=== PATIENT | male | born 1945 | race American Indian/Alaskan Native ===

== ENCOUNTER 2016-12-04 10:40 | Emergency (ER) | payer MEDICARE ==
--- NOTE | 2016-12-04 12:00 | Emergency Department Report ---
Chief Complaint: Abdominal Pain Stated Complaint: LT SIDE PAIN Time Seen by Provider: 12/04/16 11:57 - HPI History of Present Illness: Patient here reports abdominal pain to left side for approximately 1 month. He is also complaining of some swelling to the ear for a couple weeks. Denies any fever or chills. Denies any nausea or vomiting. Denies any urinary burning or blood in his urine. His primary care physician is Dr. Velasquez Dill. He said he was here 6 months ago and he had a CT scan done and they told him that he has kidney stone bleeding does not believe that. Patient has a history of spinal injury at C5-6 and he is had surgery in the past. Patient is a incomplete quadriplegic. He has a suprapubic catheter in place. Reports pain is 9 out of 10 to his left abdomen and it comes and goes. - ROS Review of Systems: all Systems are negative unless stated in HPI above - Exam Vital Signs: Vital Signs 12/04/16 11:07 Temperature 98.4 F Pulse Rate 80 Respiratory 18 Rate Blood Pressure 97/65 O2 Sat by Pulse 100 Oximetry Physical Exam: General: This is a 68 through male well-nourished well-developed in no acute distress.He Is wheelchair bound. CV: Blood pressure is 97/65 and patient reports his blood pressure is usually low. S1 and S2, regular rate and rhythm. Abdomen: Mild tenderness to palpate to left lower abdomen. no Guarding or rebound tenderness. It is CVA tenderness. Patient has suprapubic catheter with small amount of drainage which she said has been there since he had catheter placed. MSE screening note: Focused history and physical exam performed. Due to findings the following was ordered: see [facility] ED Medical Decision Making - Medical Decision Making Medical decision making: Patient seen by provider in triage area. Appropriate protocol activated and patient to main ED to be seen by physician. ED Disposition for MSE Condition: Stable
[2016-12-04 12:35] LABS: Basophils % (Auto) 0.4 % (0.0-1.8); Hematocrit 43.4 % (35.5-45.6); Hemoglobin 14.2 gm/dl (11.8-15.2); Mean Corpuscular HGB Conc 33 % (32-34); Mean Corpuscular Hemoglobin 28 pg (28-32); Mean Corpuscular Volume 84 fl (84-94); Platelet Count 112 K/mm3 (140-440); Red Blood Count 5.15 M/mm3 (3.65-5.03); Red Cell Distribution Width 14.9 % (13.2-15.2); White Blood Count 4.1 K/mm3 (4.5-11.0)
[2016-12-04 12:43] LABS: Alanine Aminotransferase 30 units/L (7-56); Albumin 3.5 g/dL (3.9-5); Albumin/Globulin Ratio 0.9 %; Alkaline Phosphatase 71 units/L (35-129); Amylase 135 units/L (27-131); Anion Gap 16 mmol/L; BUN/Creatinine Ratio 18.57; Bilirubin,Direct 0.2 mg/dL (0-0.2); Bilirubin,Indirect 0.6 mg/dL; Bilirubin,Total 0.8 mg/dL (0.1-1.2); Blood Urea Nitrogen 26 mg/dL (9-20); Calcium 8.9 mg/dL (8.4-10.2); Carbon Dioxide 23 mmol/L (22-30); Chloride 102.9 mmol/L (98-107); Glucose 109 mg/dL (75-100); Lipase 54 units/L (13-60); Potassium 4.1 mmol/L (3.6-5.0); Sodium 138 mmol/L (137-145); Total Protein 7.6 g/dL (6.3-8.2)
[2016-12-04 13:10] LABS: Bilirubin,Urine NEG (Negative); Blood,Urine MOD (Negative); Ketones,Urine TR mg/dL (Negative); Leukocyte Esterase,Urine MOD (Negative); Mucus,Urine FEW /HPF; Nitrite,Urine NEG (Negative)
[2016-12-04 13:11] LABS: RBC,Urine > 182.0 /HPF (0.0-6.0); WBC,Urine > 182.0 /HPF (0.0-6.0)
--- NOTE | 2016-12-04 18:22 | Cat Scan Report ---
FINAL REPORT PROCEDURE: CT ABDOMEN PELVIS WO CON TECHNIQUE: Computerized axial tomography of the abdomen and pelvis was performed without intravenous contrast. This study is performed without intravascular contrast material and its sensitivity for abdominal and pelvic pathology, including neoplasms, inflammation, abscess, free fluid, thrombosis, arterial dissection and infarction, is reduced compared with a contrast enhanced study. HISTORY: abdomional pain with UTI. H/O kidney stones COMPARISON: CT exam dated October 05, 2015 FINDINGS: Hypoventilatory changes are seen in the lower lungs. Heart is mildly enlarged without pulmonary venous congestion. Liver and spleen appear normal. Gallbladder is not well distended. No definite wall thickening is seen but there is a small stone in the neck of the gallbladder measuring approximately 3 millimeters in size. No biliary ductal dilation is seen. Pancreas appears normal. Adrenal glands and abdominal aorta are normal in size. No nephrolithiasis or hydronephrosis is seen. Mildly hyperdense cyst is suspected in the superior pole of the right kidney, unchanged from prior study. Patient has a suprapubic catheter with decompressed urinary bladder. There is likely small left inguinal hernia containing fat and mild fatty distention of the right inguinal ring. Prostatomegaly is similar to prior study. No free pelvic fluid is seen. Mild constipation is seen in the rectosigmoid colon. Normal appendix is seen. No evidence of small bowel obstruction is seen. IMPRESSION: Bladder is decompressed with a suprapubic catheter and cannot be assessed for wall thickening. No evidence of pyelonephritis is seen. No renal stones or hydronephrosis are seen. 3 millimeter gallstone is seen without suggestion of cholecystitis. There is mild constipation in the rectosigmoid colon.
[2016-12-04 22:50] VITALS: BP 139/84
== END 2016-12-04 23:15 ==
LOC: ED 10:40
DX: R10.30 Lower abdominal pain, unspecified (principal); H93.8X9 Other specified disorders of ear, unspecified ear; Z53.21 Procedure and treatment not carried out due to patient leaving prior to being seen by health care provider
CPT/HCPCS: 36415; 74176; 80048; 80074; 81001; 82150; 83690; 85025

== ENCOUNTER 2019-11-03 02:21 | Emergency (ER) | payer MEDICARE ==
[2019-11-03 03:19] LABS: Basophils # (Auto) 0.1 K/mm3 (0.0-0.1); Basophils % (Auto) 0.6 % (0.0-1.8); Eosinophils # (Auto) 0.1 K/mm3 (0.0-0.4); Eosinophils % (Auto) 1.7 % (0.0-4.3); Hematocrit 46.5 % (35.5-45.6); Hemoglobin 15.6 gm/dl (11.8-15.2); Lymphocytes # (Auto) 1.6 K/mm3 (1.2-5.4); Lymphocytes % (Auto) 19.9 % (13.4-35.0); Mean Corpuscular HGB Conc 34 % (32-34); Mean Corpuscular Volume 86 fl (84-94); Monocytes # (Auto) 0.7 K/mm3 (0.0-0.8); Monocytes % (Auto) 9.3 % (0.0-7.3); Platelet Count 170 K/mm3 (140-440); Red Cell Distribution Width 14.5 % (13.2-15.2)
[2019-11-03 03:39] LABS: Calcium 9.6 mg/dL (8.4-10.2)
--- NOTE | 2019-11-03 04:04 | Emergency Department Report ---
ED General Adult HPI - General Chief complaint: High BP Stated complaint: HBP Time Seen by Provider: 11/03/19 03:50 Source: patient, EMS Mode of arrival: Stretcher Limitations: Physical Limitation - History of Present Illness Initial comments: Patient is a 73-year-old male that presents emergency room with complaints that his urostomy tube is not working. Patient states the urine is not flowing from his urostomy tube but is coming out his penis. Patient states his been going on for hours. Patient states he is also having high blood pressure. Patient complains of generalized pain. Patient states she has generalized chronic pain. -: Sudden Severity scale (0 -10): 10 Consistency: constant Improves with: none Worsens with: none - Related Data Home Medications Medication Instructions Recorded Confirmed Last Taken Multivit-Minerals/FA/Lycopene [One 1 tab PO DAILY 07/04/14 10/05/15 07/03/14 10:00 Daily [employer] Tablet] Lisinopril 10 mg PO DAILY 05/13/15 10/05/15 05/12/15 09:00 Previous Rx's Medication Instructions Recorded Last Taken Type levoFLOXacin [Levaquin TAB] 500 mg PO QDAY #7 tablet 10/05/[address] [Voltaren Dr] 75 mg PO Q12H #30 tablet 11/01/15 Unknown Rx Oxycodone HCl/Acetaminophen 1 each PO Q6HR PRN #20 tablet 11/01/15 Unknown Rx [Percocet 7.5/325 mg] hydrOXYzine HCL [Atarax] 25 mg PO Q6HR PRN #30 tablet 11/01/15 Unknown Rx levoFLOXacin [Levaquin] 750 mg PO QDAY #7 tablet 11/01/15 Unknown Rx oxyCODONE /ACETAMINOPHEN [Percocet 1 tab PO Q6HR PRN #12 tablet 11/17/15 Unknown Rx 5/325] traMADoL [Ultram 50 MG tab] 50 mg PO Q6HR PRN #12 tablet 12/23/15 Unknown Rx Acetaminophen/Codeine [Tylenol #3] 1 tab PO Q6H PRN #20 tab 02/04/16 Unknown Rx levoFLOXacin [Levaquin TAB] 500 mg PO QDAY #10 tablet 11/03/19 Unknown Rx Allergies Allergy/AdvReac Type Severity Reaction Status Date / Time No Known Allergies Allergy Verified 12/04/16 11:07 ED Review of Systems ROS: Stated complaint: HBP Other details as noted in HPI Comment: All other systems reviewed and negative ED Past Medical Hx - Past Medical History Previous Medical History?: Yes Hx Hypertension: Yes (2011, instructed to take his medication. ) Hx Liver Disease: No Hx Renal Disease: No Hx Arthritis: Yes Hx Seizures: No Hx Kidney Stones: Yes Hx Psychiatric Treatment: No Hx Asthma: No Hx HIV: No Additional medical history: spinal injury C5/6 incomplete quadriplegia - Surgical History Past Surgical History?: Yes Additional Surgical History: spinal surgery. suprapubic. STONE REMOVED FROM RIGHT SALIVARY GLAND - Social History Smoking Status: Former Smoker Substance Use Type: None - Medications Home Medications: Home Medications Medication Instructions Recorded Confirmed Last Taken Type Multivit-Minerals/FA/Lycopene [One 1 tab PO DAILY 07/04/14 10/05/15 07/03/14 10:00 History Daily [employer] Tablet] Lisinopril 10 mg PO DAILY 05/13/15 10/05/15 05/12/15 09:00 History levoFLOXacin [Levaquin TAB] 500 mg PO QDAY #7 tablet 10/05/[address] [Derrick Dr] 75 mg PO Q12H #30 tablet 11/01/15 Unknown Rx Oxycodone HCl/Acetaminophen 1 each PO Q6HR PRN #20 tablet 11/01/15 Unknown Rx [Percocet 7.5/325 mg] hydrOXYzine HCL [Atarax] 25 mg PO Q6HR PRN #30 tablet 11/01/15 Unknown Rx levoFLOXacin [Levaquin] 750 mg PO QDAY #7 tablet 11/01/15 Unknown Rx oxyCODONE /ACETAMINOPHEN [Percocet 1 tab PO Q6HR PRN #12 tablet 11/17/15 Unknown Rx 5/325] traMADoL [Ultram 50 MG tab] 50 mg PO Q6HR PRN #12 tablet 12/23/15 Unknown Rx Acetaminophen/Codeine [Tylenol #3] 1 tab PO Q6H PRN #20 tab 02/04/16 Unknown Rx levoFLOXacin [Levaquin TAB] 500 mg PO QDAY #10 tablet 11/03/19 Unknown Rx ED Physical Exam - General Limitations: Physical Limitation General appearance: alert, in no apparent distress - Head Head exam: Present: atraumatic, normocephalic - Eye Eye exam: Present: normal appearance - ENT ENT exam: Present: mucous membranes moist - Neck Neck exam: Present: normal inspection - Respiratory Respiratory exam: Present: normal lung sounds bilaterally. Absent: respiratory distress - Cardiovascular Cardiovascular Exam: Present: regular rate, normal rhythm. Absent: systolic murmur, diastolic murmur, rubs, gallop - GI/Abdominal GI/Abdominal exam: Present: soft, normal bowel sounds, other (suprapubic urostomy tube noted.). Absent: tenderness - Rectal Rectal exam: Present: deferred - Extremities Exam Extremities exam: Present: normal inspection - Back Exam Back exam: Present: normal inspection - Neurological Exam Neurological exam: Present: alert, oriented X3 - Psychiatric Psychiatric exam: Present: normal affect, normal mood - Skin Skin exam: Present: warm, dry, intact, normal color. Absent: rash ED Course Vital Signs 11/03/19 11/03/19 11/03/19 02:35 04:01 04:15 Temperature 98.2 F Pulse Rate 70 101 H Respiratory 16 17 16 Rate Blood Pressure 254/149 145/97 Blood Pressure 254/149 [Left] O2 Sat by Pulse 96 95 Oximetry 11/03/19 05:00 Temperature Pulse Rate 97 H Respiratory 13 Rate Blood Pressure 152/105 Blood Pressure [Left] O2 Sat by Pulse 96 Oximetry - Reevaluation(s) Reevaluation #1: Dari evaluation done. Patient's urostomy tube was flushed and urine began to flow. Urostomy tube appears to be clogged with a clot. 11/03/19 03:46 Reevaluation #2: After the urine began to flow into the patient's urostomy bag, the patient's blood pressure immediately improved. current blood pressure is 146/80. Patient will be given 1 mg Dilaudid. 11/03/19 04:04 Reevaluation #3: Pressures much better. Blood pressure stabilized. Patient did not require any blood pressure medication. Patient's pain is better. Patient urostomy tube is flowing nicely. Patient is stable for discharge. I discussed all results with patient. Patient agrees to plan of care. Patient will be discharged home and will be transported via ground EMS. I discussed discharge instructions patient. Patient voiced understanding of discharge instructions. 11/03/19 04:54 ED Medical Decision Making - Lab Data Result diagrams: 11/03/19 03:09 11/03/19 03:08 - EKG Data -: EKG Interpreted by Me EKG shows normal: sinus rhythm, axis, intervals, QRS complexes, ST-T waves Rate: normal - Medical Decision Making Patient is a 73-year-old mellitus emergency room with complaints of urinary retention and elevated blood pressure. Patient was brought in by EMS. Patient blood pressure improved on its own after the urinary obstruction was removed. Patient's urostomy tube was flushed with normal saline. Patient's urostomy obstruction was easily removed with minimal effort. Patient's blood pressure improved on its own after the obstruction was cleared. Patient will be tr ansferred back to his place of residence via EMS. - Differential Diagnosis urinary retention, malfunctioning urostomy tube. Urostomy tube obs. Htn Critical care attestation.: If time is entered above; I have spent that time in minutes in the direct care of this critically ill patient, excluding procedure time. ED Disposition Clinical Impression: Urinary retention Complication, blocked urostomy catheter Qualifiers: Encounter type: initial encounter Qualified Code(s): T83.098A - Other mechanical complication of other urinary catheter, initial encounter UTI (urinary tract infection) Qualifiers: Urinary tract infection type: acute cystitis Hematuria presence: with hematuria Qualified Code(s): N30.01 - Acute cystitis with hematuria Hypertension Qualifiers: Hypertension type: essential hypertension Qualified Code(s): I10 - Essential (primary) hypertension Disposition: - TO HOME OR SELFCARE Is pt being admited?: No Does the pt Need Aspirin: No Condition: Stable Instructions: Heart Healthy Diet (ED), How to Take a Blood Pressure (ED), DASH Eating Plan (ED), Hypertension (ED) Additional Instructions: Patient to follow up with primary care in 2-3 days. Patient to follow up with u rologist in 2-3 days. Patient to return to ER if condition changes, worsens or new symptoms arise. Patient to rest. Patient to increase water. Patient take meds as directed. He should to monitor blood pressure at home and keep a blood pressure log. Patient to take blood pressure log to his follow-up appointments. Patient to eat a heart healthy, low salt diet. Prescriptions: levoFLOXacin [Levaquin TAB] 500 mg PO QDAY #10 tablet Referrals: PRIMARY CARE, [Primary Care Provider] - 2-3 Days Time of Disposition: 05:41
[2019-11-03] MEDS ORDERED: HYDROmorphone 1 MG/1 ML INJ IV ONE (04:05)
[2019-11-03 05:18] LABS: Bacteria,Urine 2+ /HPF (Negative); Bilirubin,Urine NEG (Negative); Blood,Urine LG (Negative); Color,Urine Yellow (Yellow); Mucus,Urine FEW /HPF; Urobilinogen,Urine < 2.0 mg/dL (<2.0)
[2019-11-03 07:33] VITALS: BP 142/65
== END 2019-11-03 07:24 | disposition home or self-care (01) ==
LOC: ED 02:21
DX: N39.0 Urinary tract infection, site not specified (principal); I10 Essential (primary) hypertension; T83.098A Other mechanical complication of other urinary catheter, initial encounter; M19.90 Unspecified osteoarthritis, unspecified site; N20.0 Calculus of kidney; Z98.890 Other specified postprocedural states; Z87.891 Personal history of nicotine dependence; Z79.899 Other long term (current) drug therapy
CPT/HCPCS: 36415; 80048; 81001; 85025; 87076; 87086; 87186; 93005; 93010; 96374; 99284; J1170

== ENCOUNTER 2021-09-14 05:30 | Emergency (ER) | payer MEDICARE ==
--- NOTE | 2021-09-14 05:36 | Event Note ---
ED Screening Note ED Screening Note: This initial assessment/diagnostic orders/clinical plan/treatment(s) is/are subject to change based on patients health status, clinical progression and re- assessment by fellow clinical providers in the ED. Further treatment and workup at subsequent clinical providers discretion. Patient/guardian urged not to elope from the ED as their condition may be serious if not clinically assessed and managed. This is a 75-year-old male with history of "weak bladder", quadriplegia who presents with hematuria. Patient had suprapubic catheter placed at [facility] 3 days ago. Patient also has flank pain. Screening orders initiated.
[2021-09-14] MEDS ORDERED: fentaNYL 100 MCG/2 ML INJ IV ONE (06:12)
[2021-09-14] MEDS ORDERED: ONDANSETRON 4 MG/2 ML INJ IV ONE (06:12)
[2021-09-14] MEDS ORDERED: fentaNYL 100 MCG/2 ML INJ ONE (06:15)
[2021-09-14] MEDS ORDERED: hydrALAZINE 20 MG/1 ML INJ IV ONE (06:19)
--- NOTE | 2021-09-14 06:28 | Emergency Department Report ---
ED General Adult HPI - General Chief complaint: Urogenital-Male Stated complaint: CATH BLEEDING Time Seen by Provider: 09/14/21 06:09 Source: patient, EMS Mode of arrival: Stretcher Limitations: Physical Limitation - History of Present Illness Initial comments: Patient is 75 years old male with history of quadriplegia secondary to spinal injury at C5 and C6, hypertension and kidney stone. Patient also had history of bladder incontinence most likely secondary to his quadriplegia with chronic suprapubic catheter. Patient stated that he went to [facility] for replacement of his suprapubic catheter 3 days ago. Patient stated that for the last few days he started to have blood in the urine and suprapubic pain. Patient stated that this is happened to him before and usually relieved with irrigation of the catheter. Patient stated that his pain is 10 out of 10. Patient also found to be hypertensive with a blood pressure of 230/120. Patient stated that he is out of his blood pressure medication 2. Patient denied any fever or chills. No chest pain or shortness of breath. He also complained of flank pain bilaterally. Severity scale (0 -10): 10 - Related Data Home Medications Medication Instructions Recorded Confirmed Last Taken Multivit-Minerals/FA/Lycopene [One 1 tab PO DAILY 07/04/14 10/05/15 07/03/14 10:00 Daily [employer] Tablet] Lisinopril 10 mg PO DAILY 05/13/15 10/05/15 05/12/15 09:00 Previous Rx's Medication Instructions Recorded Last Taken Type levoFLOXacin [Levaquin TAB] 500 mg PO QDAY #7 tablet 10/05/15 Unknown Rx Samson Hidalgo [Derrick Hidalgo] 75 mg PO Q12H #30 tablet 11/01/15 Unknown Rx Oxycodone HCl/Acetaminophen 1 each PO Q6HR PRN #20 tablet 11/01/15 Unknown Rx [Percocet 7.5/325 mg] hydrOXYzine HCL [Atarax] 25 mg PO Q6HR PRN #30 tablet 11/01/15 Unknown Rx levoFLOXacin [Levaquin] 750 mg PO QDAY #7 tablet 11/01/15 Unknown Rx oxyCODONE /ACETAMINOPHEN [Percocet 1 tab PO Q6HR PRN #12 tablet 11/17/15 Unknown Rx 5/325] traMADoL [Ultram 50 MG tab] 50 mg PO Q6HR PRN #12 tablet 12/23/15 Unknown Rx Acetaminophen/Codeine [Tylenol #3] 1 tab PO Q6H PRN #20 tab 02/04/16 Unknown Rx levoFLOXacin [Levaquin TAB] 500 mg PO QDAY #10 tablet 11/03/19 Unknown Rx Allergies Allergy/AdvReac Type Severity Reaction Status Date / Time No Known Allergies Allergy Verified 12/04/16 11:07 ED Review of Systems ROS: Stated complaint: CATH BLEEDING Other details as noted in HPI Comment: All other systems reviewed and negative Constitutional: denies: chills, fever Respiratory: denies: cough, shortness of breath, SOB with exertion, SOB at rest Cardiovascular: denies: chest pain, palpitations Gastrointestinal: abdominal pain. denies: nausea, vomiting, diarrhea, constipation, hematemesis, melena, hematochezia Musculoskeletal: back pain Neurological: denies: headache, weakness, numbness, paresthesias, confusion ED Past Medical Hx - Past Medical History Hx Hypertension: Yes (2011, instructed to take his medication. ) Hx Liver Disease: No Hx Renal Disease: No Hx Arthritis: Yes Hx Seizures: No Hx Kidney Stones: Yes Hx Psychiatric Treatment: No Hx Asthma: No Hx HIV: No Additional medical history: spinal injury C5/6 incomplete quadriplegia - Surgical History Past Surgical History?: Yes Additional Surgical History: spinal surgery. suprapubic. STONE REMOVED FROM RIGHT SALIVARY GLAND - Social History Smoking Status: Never Smoker - Medications Home Medications: Home Medications Medication Instructions Recorded Confirmed Last Taken Type Multivit-Minerals/FA/Lycopene [One 1 tab PO DAILY 07/04/14 10/05/15 07/03/14 10:00 History Daily [employer] Tablet] Lisinopril 10 mg PO DAILY 05/13/15 10/05/15 05/12/15 09:00 History levoFLOXacin [Levaquin TAB] 500 mg PO QDAY #7 tablet 10/05/[address] [Derrick Hidalgo] 75 mg PO Q12H #30 tablet 11/01/15 Unknown Rx Oxycodone HCl/Acetaminophen 1 each PO Q6HR PRN #20 tablet 11/01/15 Unknown Rx [Percocet 7.5/325 mg] hydrOXYzine HCL [Atarax] 25 mg PO Q6HR PRN #30 tablet 11/01/15 Unknown Rx levoFLOXacin [Levaquin] 750 mg PO QDAY #7 tablet 11/01/15 Unknown Rx oxyCODONE /ACETAMINOPHEN [Percocet 1 tab PO Q6HR PRN #12 tablet 11/17/15 Unknown Rx 5/325] traMADoL [Ultram 50 MG tab] 50 mg PO Q6HR PRN #12 tablet 12/23/15 Unknown Rx Acetaminophen/Codeine [Tylenol #3] 1 tab PO Q6H PRN #20 tab 02/04/16 Unknown Rx levoFLOXacin [Levaquin TAB] 500 mg PO QDAY #10 tablet 11/03/19 Unknown Rx ED Physical Exam - General Limitations: Physical Limitation General appearance: alert, in distress - Head Head exam: Present: atraumatic, normocephalic, normal inspection - Eye Eye exam: Present: normal appearance, PERRL - ENT ENT exam: Present: normal exam, normal orophraynx, mucous membranes moist - Neck Neck exam: Present: normal inspection, full ROM. Absent: tenderness, meningismus - Respiratory Respiratory exam: Present: normal lung sounds bilaterally - Cardiovascular Cardiovascular Exam: Present: regular rate, normal rhythm, normal heart sounds - GI/Abdominal GI/Abdominal exam: Present: soft, distended, normal bowel sounds. Absent: tenderness, guarding, rebound, rigid, organomegaly, mass, bruit, pulsatile mass, hernia - Extremities Exam Extremities exam: Absent: tenderness - Back Exam Back exam: Present: normal inspection. Absent: CVA tenderness (R), CVA tenderness (L) - Neurological Exam Neurological exam: Present: alert, CN II-XII intact, motor sensory deficit (chronic) - Psychiatric Psychiatric exam: Present: normal mood - Skin Skin exam: Present: warm ED Course Vital Signs 09/14/21 09/14/21 09/14/21 05:30 05:38 06:23 Temperature 98.1 F Pulse Rate 85 Respiratory 18 18 18 Rate Blood Pressure Blood Pressure 230/130 [Right] O2 Sat by Pulse 97 97 Oximetry 09/14/21 09/14/21 09/14/21 06:24 08:11 08:44 Temperature Pulse Rate 84 Respiratory 20 16 Rate Blood Pressure 243/133 Blood Pressure [Right] O2 Sat by Pulse 96 Oximetry 09/14/21 09/14/21 09/14/21 08:45 09:00 09:30 Temperature Pulse Rate 68 Respiratory 16 15 Rate Blood Pressure 80/51 85/53 90/60 Blood Pressure [Right] O2 Sat by Pulse 96 96 97 Oximetry 09/14/21 09/14/21 09/14/21 10:00 10:30 10:46 Temperature Pulse Rate 70 63 Respiratory 28 H 24 13 Rate Blood Pressure 118/70 130/72 130/72 Blood Pressure [Right] O2 Sat by Pulse 98 99 98 Oximetry 09/14/21 11:00 Temperature Pulse Rate 67 Respiratory 14 Rate Blood Pressure 146/80 Blood Pressure [Right] O2 Sat by Pulse 98 Oximetry ED Medical Decision Making - Lab Data Result diagrams: 09/14/21 05:52 09/14/21 05:52 - Radiology Data Radiology results: report reviewed - Medical Decision Making Patient is 75 years old male with history of quadriplegia secondary to spinal injury at C5 and C6, hypertension and kidney stone. Patient also had history of bladder incontinence most likely secondary to his quadriplegia with chronic [place] prapubic catheter. Patient stated that he went to [facility] ER for replacement of his suprapubic catheter 3 days ago. Patient stated that for the last few days he started to have blood in the urine and suprapubic pain. Patient stated that this is happened to him before and usually relieved with irrigation of the catheter. Patient stated that his pain is 10 out of 10. Patient also found to be hypertensive with a blood pressure of 230/120. Patient stated that he is out of his blood pressure medication 2. Patient denied any fever or chills. No chest pain or shortness of breath. He also complained of flank pain bilaterally. Patient received fentanyl and morphine for pain. Blood pressure improved with hydralazine. Patient has been irrigated several times with urine flow. Patient stated that he is feeling much better. Patient advised to follow-up with his urologist in the next 2 to 3 days and to return to the ER if he develop any new symptoms. Critical care attestation.: If time is entered above; I have spent that time in minutes in the direct care of this critically ill patient, excluding procedure time. ED Disposition Clinical Impression: Urinary retention, Complication, blocked suprapubic catheter Disposition: 01 HOME / SELF CARE / HOMELESS Is pt being admited?: No Condition: Stable Instructions: Acute Urinary Retention, Male Referrals: KINA ASCENCIO MD [Primary Care Provider] - 3-5 Days
[2021-09-14 06:31] LABS: Basophils % (Auto) 0.4 % (0.0-1.8); Eosinophils # (Auto) 0.2 K/mm3 (0.0-0.4); Eosinophils % (Auto) 4.4 % (0.0-4.3); Hematocrit 43.3 % (35.5-45.6); Hemoglobin 13.7 gm/dl (11.8-15.2); Lymphocytes # (Auto) 1.2 K/mm3 (1.2-5.4); Lymphocytes % (Auto) 24.9 % (13.4-35.0); Mean Corpuscular HGB Conc 32 % (32-34); Mean Corpuscular Volume 81 fl (84-94); Monocytes # (Auto) 0.5 K/mm3 (0.0-0.8); Monocytes % (Auto) 10.1 % (0.0-7.3); Platelet Count 119 K/mm3 (140-440); Red Blood Count 5.37 M/mm3 (3.65-5.03); Red Cell Distribution Width 17.5 % (13.2-15.2)
[2021-09-14] MEDS ORDERED: SODIUM CHLORIDE IRRI 500 ML 500 ML IR ONE ×3 (06:33→08:07)
[2021-09-14 06:39] LABS: Calcium 8.8 mg/dL (8.4-10.2)
[2021-09-14 07:18] LABS: INR 0.93 (0.87-1.13)
[2021-09-14 07:19] LABS: Partial Thromboplastin Time 30.9 Sec. (24.2-36.6)
[2021-09-14] MEDS ORDERED: MORPHINE 4 MG/1 ML INJ IM ONE (08:10)
[2021-09-14] MEDS ORDERED: SODIUM CHLORIDE 0.9% 1000 ML 1,000 ML IV ONE (08:12)
[2021-09-14] MEDS ORDERED: MORPHINE 2 MG/1 ML INJ ONE (08:14)
--- NOTE | 2021-09-14 12:20 | Cat Scan Report ---
CT OF THE ABDOMEN AND PELVIS WITHOUT CONTRAST INDICATION / CLINICAL INFORMATION: ABDOMINAL PAIN AND HEMATURIA. PARAPLEGIC. TECHNIQUE: All CT scans at this location are performed using CT dose reduction for ALARA by means of automated exposure control. COMPARISON: 12/04/16. FINDINGS: ABDOMEN: The gallbladder is surgically absent. The liver, spleen, bile ducts, pancreas, adrenal gland s, kidneys and bowel demonstrate no significant abnormality. No adenopathy is seen. There is mild bib asilar dependent atelectasis, greater on the left. PELVIS: There is a suprapubic catheter in the urinary bladder which is collapsed. The distal ureters are normal. I do not identify a bladder calculus. The prostate gland appears enlarged. The seminal ve sicles are unremarkable. A normal appendix is present and there is no evidence of diverticulitis. No abnormal mass or fluid co llection is seen. I do not identify a hernia. There is a penile prosthesis. There is internal fixatio n of the proximal left femur. A moderately severe compression fracture/Schmorl's node involving the s uperior endplate of the L5 vertebral body is new since the prior study. There is no evidence of signi ficant spinal stenosis. There is mild lower lumbar spondylosis. IMPRESSION: 1. No acute abnormality is identified. 2. Moderately severe compression fracture/Schmorl's node involving the superior endplate of the L5 ve rtebral body is new since the prior exam. Signer Name: Claude Reis MD Signed: 09/14/2021 12:16 PM Workstation Name: [id number]
[2021-09-14] MEDS ORDERED: SODIUM CHLORIDE IRRI 500 ML 1,000 ML IR ONE (13:52)
[2021-09-14 14:16] VITALS: BP 147/83
== END 2021-09-14 14:59 | disposition home or self-care (01) ==
LOC: ED 05:30
DX: T83.098A Other mechanical complication of other urinary catheter, initial encounter (principal); R33.9 Retention of urine, unspecified; R31.9 Hematuria, unspecified; Y84.6 Urinary catheterization as the cause of abnormal reaction of the patient, or of later complication, without mention of misadventure at the time of the procedure; Y92.89 Other specified places as the place of occurrence of the external cause; I10 Essential (primary) hypertension; Z87.442 Personal history of urinary calculi; Z98.890 Other specified postprocedural states; Z79.899 Other long term (current) drug therapy
CPT/HCPCS: 36415; 74176; 80048; 85025; 85610; 85730; 96361; 96372; 96374; 96375; 99284; J0360; J2270; J2405; J3010; J7030